=== PATIENT | female | born 1975 | race Caucasian/White ===

== ENCOUNTER 2022-03-05 09:29 | Emergency (ER) | payer OTHER ==
[~2022-03-05] VITALS: Ht 175 cm; Wt 133.0 kg
[~2022-03-05 09:29] MED LIST: PRD20T PO
--- NOTE | 2022-03-05 10:11 | ED Headache ---
General Chief Complaint: Head/Cervical Problems Stated Complaint: HEAD PAIN Nursing Triage Note: headache at right church area for 5 days. otc meds will take headache away however tempral pain remains. denies injury, no fever, cough. Source: patient Exam Limitations: no limitations History of Present Illness Date Seen by Provider: Mar 05, 2022 Time Seen by Provider: 09:55 Initial Comments Patient is a 47-year-old female who presents to the emergency department today with a chief complaint of right temporal headache onset about 5 days ago. Patient cannot recall exactly what activity precipitated the headache. She states it has been basically constant in nature. She has been taking over -the-counter generic Excedrin Migraine and extra strength Tylenol. She states the headache improves but it never actually goes away. It does not limit her activity. She denies any associated vision changes or eye pain. No sinus congestion or discomfort. No fevers or chills. No neck pain. No speech or swallowing difficulties. No unilateral numbness, weakness or tingling. No balance or coordination problems. She has had other generalized headache in addition to the right temporal pain that has been resolved completely with tkut-nob-kzevtfa medications. She takes Topamax for weight reduction as well as an antihypertensive. She is concerned about something that is "bad" going on in her head. She was seen at [facility] this morning, their CT scanner was down. They ordered an outpatient CT of the head without contrast however her insurance requires prior authorization. She decided to come back into the emergency room here for CAT scan No other associated symptoms of illness. No recent trauma. All other review of systems reviewed and negative except as stated Timing/Duration: other (5d) Severity/Quality: mild Location: temporal (right) Prior Headaches/Recent Trauma: occasional headaches Modifying Factors: improves with other (nothing makes it worse or better) Associated Symptoms: denies symptoms Allergies and Home Medications Allergies Coded Allergies: No Known Drug Allergies (Unverified , 03/22/13) Patient Home Medication List Home Medication List Reviewed: Yes Prednisone (Prednisone) 20 Mg Tab, 20 MG PO BID Prescribed by: MAKSIM RODRIGUEZ on 03/22/13 0533 Review of Systems Review of Systems Constitutional: see HPI Eyes: No Symptoms Reported Ears, Nose, Mouth, Throat: no symptoms reported Respiratory: no symptoms reported Cardiovascular: no symptoms reported Gastrointestinal: no symptoms reported Genitourinary: no symptoms reported Musculoskeletal: no symptoms reported Skin: no symptoms reported Psychiatric/Neurological: No Symptoms Reported, Headache (right temporal) All Other Systems Reviewed Negative Unless Noted: Yes Past Cmyiikn-Oqxedq-Jzmdbs Hx Patient Social History Tobacco Use?: No Use of E-Cig and/or Vaping dev: No Substance use?: No Alcohol Use?: No Past Medical History Reproductive Disorders: No Sexually Transmitted Disease: No Physical Exam Vital Signs Vital Signs - First Documented 03/05/22 09:39 Temp 36.8 Pulse 74 Resp 18 B/P (MAP) 142/111 (121) Pulse Ox 98 O2 Delivery Room Air Capillary Refill : Less Than 3 Seconds Height, Weight, BMI Height: '" Weight: 250lbs. oz. [id number]; 43.00 BMI Method: General Appearance: WD/WN, no apparent distress HEENT: PERRL/EOMI, normal ENT inspection, TMs normal, pharynx normal, other (no actual tenderness to palpation of either globe. no temporal artery tenderness) Neck: full range of motion Cardiovascular: regular rate, rhythm Respiratory: lungs clear, normal breath sounds, no respiratory distress, no accessory muscle use Gastrointestinal: normal bowel sounds, non tender, soft, other (obese) Back: normal inspection Extremities: normal range of motion, non-tender, normal inspection, no pedal edema, no calf tenderness Psychiatric: alert, oriented x 3 Crainal Nerves: normal hearing, normal speech, PERRL; No abnormal eye position, No abnormal gag reflex, No abnormal pupil position, No abnormal speech, No facial asymmetry, No facial paresthesias, No facial weakness, No gaze palsy, No tongue deviation to R, No tongue deviation to L Coordination/Gait: normal gait Motor/Sensory: no motor deficit, no sensory deficit, no pronator drift Skin: normal color, warm/dry Progress/Results/Core Measures Results/Orders My Orders Orders - RAMA ALEMAN MD Ct Head Wo (03/05/22 10:20) Vital Signs/I&O 03/05/22 09:39 Temp 36.8 Pulse 74 Resp 18 B/P (MAP) 142/111 (121) Pulse Ox 98 O2 Delivery Room Air Blood Pressure Mean: 121 Diagnostic Imaging Diagonstic Imaging: CT Comments [facility], [place] NAME: MIRE[facility]ILL [facility] REC#: [id number] PT STATUS: REG ER : 1975 PHYSICIAN: RAMA ALEMAN MD ADMIT DATE: 03/05/22/ER Draft Date of Exam:03/05/22 CT HEAD WO PROCEDURE: CT head without contrast. TECHNIQUE: Multiple contiguous axial images were obtained through the brain without the use of intravenous contrast. Auto Exposure Controls were utilized during the CT exam to meet ALARA standards for radiation dose reduction. INDICATION: Right-sided headache. COMPARISON: No prior studies are available for comparison. FINDINGS: The ventricles and sulci are within normal limits. No sulcal effacement or midline shift is identified. No acute intra-axial or extra-axial hemorrhage is detected. Cisterns are patent. Visualized paranasal sinuses appear clear apart from a small mucous retention cyst or polyp in the right maxillary sinus. IMPRESSION: No acute intracranial process is detected. Dictated on workstation # [id number] Dict: 03/05/22 1038 Trans: 03/05/22 1042 [id number] [id number] Interpreted by: YOLANDA POSEY MD Electronically signed by: Departure Impression Primary Impression: Headache Qualified Codes: R51.9 - Headache, unspecified Disposition: HOME, SELF-CARE Condition: Stable Departure-Patient Inst. Decision time for Depature: 11:01 Referrals: ANDER LOZANO (PCP/Family) Primary Care Physician Patient Instructions: Headache, Adult (DC) Add. Discharge Instructions: Drink plenty of fluids to stay well-hydrated. Try qnzq-nkq-addialp Aleve, 2 tablets twice a day with food as needed for headache. Follow-up with your primary care nurse practitioner. Return to the emergency department for any new, concerning or emergent complaints. RAMA ALEMAN MD Mar 05, 2022 10:11
--- NOTE | 2022-03-05 10:42 | Diagnostic Imaging Report ---
PROCEDURE: CT head without contrast. TECHNIQUE: Multiple contiguous axial images were obtained through the brain without the use of intravenous contrast. Auto Exposure Controls were utilized during the CT exam to meet ALARA standards for radiation dose reduction. INDICATION: Right-sided headache. COMPARISON: No prior studies are available for comparison. FINDINGS: The ventricles and sulci are within normal limits. No sulcal effacement or midline shift is identified. No acute intra-axial or extra-axial hemorrhage is detected. Cisterns are patent. Visualized paranasal sinuses appear clear apart from a small mucous retention cyst or polyp in the right maxillary sinus. IMPRESSION: No acute intracranial process is detected. Dictated by: Dictated on workstation # [id number]
[2022-03-05 11:15] VITALS: BP 133/108
== END 2022-03-05 11:17 | disposition home or self-care (01) ==
LOC: EDUNIT# 09:29 → ER 09:33
DX: R51.9 Headache, unspecified (principal)
CPT/HCPCS: 70450